=== PATIENT | male | born 1955 | race Caucasian/White ===

== ENCOUNTER 2016-12-04 12:37 | Emergency (ER) | payer BC ==
[2016-12-04] MEDS ORDERED: Ketorolac INJ* 30 MG/ML 1 ML VIAL IV ONE (13:26)
[2016-12-04 14:06] LABS: Hematocrit 43 % (42-52); Hemoglobin 14.6 g/dl (14.0-18.0); Mean Corpuscular HGB Conc 34 g/dl (31-36); Mean Corpuscular Hemoglobin 30 pg (27-31); Mean Corpuscular Volume 88 fL (80-94); Mean Platelet Volume 10 um3 (7.4-10.4); Red Cell Distribution Width 13 % (10.5-15); White Blood Count 5.4 10^3/ul (3.5-10.8)
--- NOTE | 2016-12-04 14:16 | RAD ---
HISTORY: Left shoulder pain COMPARISONS: None VIEWS: 5, Frontal internal rotation, external rotation, outlet, and axillary views of the left shoulder FINDINGS: BONE DENSITY: Normal. BONES: There is no displaced fracture. JOINTS: There is moderate osteoarthritis of the a.c. and glenoid humeral joints. ALIGNMENT: There is no dislocation. SOFT TISSUES: Unremarkable. OTHER FINDINGS: None. IMPRESSION: OSTEOARTHRITIS. NO ACUTE OSSEOUS INJURY. IF SYMPTOMS PERSIST, RECOMMEND REPEAT IMAGING.
--- NOTE | 2016-12-04 14:20 | RAD ---
Indication: Chest pain. 2 views of the chest including dual energy PA views demonstrates no mediastinal shift. Heart is of normal size and configuration. Lungs are clear. IMPRESSION: No active cardiopulmonary disease is noted.
[2016-12-04 15:12] LABS: Calcium 9.2 mg/dL (8.6-10.3); EGFR African American 162.3 (>60); EGFR Non-African American 126.2 (>60); Globulin 2.2 g/dL (2-4); Total Bilirubin 0.6 mg/dL (0.2-1.0); Total Protein 6.2 g/dL (6.4-8.9)
[2016-12-04] MEDS ORDERED: NS 0.9% 1000 ML* 1,000 ML IV ONE (15:12)
[2016-12-04 17:06] VITALS: BP 142/70
--- NOTE | 2016-12-05 20:42 | ED ---
ICarmine Nikita, scribed for Deuce Tobias MD on 12/04/16 at 1756 . Progress - Progress Note Progress Note: This patient was signed out from Dr. Cerrato, pending disposition, awaiting repeat Troponin and D-Dimer. Pt reports pain in the L upper shoulder is worse with movement. Plan to discharge the pt as long as Trop and D-dimer are negative. The patients condition is stable and will be discharged to home with Dx of Cervical radiculopathy. - Results/Orders Results/Orders: Repeat Troponin was 0.00. D-Dimer was <200. Re-Evaluation - Re-Evaluation First Eval Re-Evaluation Time: 17:20 Comment: Discussed why he presented today and the plan to discharge as long as lab results are negative. Course/Dx - Diagnoses Provider Diagnoses: Cervical radiculopathy The documentation as recorded by the Carmine weiner Nikita accurately reflects the service I personally performed and the decisions made by me, Deuce Tobias MD.
--- NOTE | 2016-12-07 15:40 | ED ---
Katlin Ly SooYoung, scribed for Quinten Cerrato MD on 12/04/16 at 1321 . Hypertension - HPI Summary HPI Summary: A 60 y/o M LOGAN presents to ED with L shoulder pain and swelling onset approx 1030. Pain radiates to his back and shoulder blade and neck. At its worst, rates pain as 9 out of 10. Pt and were on the way to the hospital, but as the pain worsened they stopped at a fire station. They took his BP there and it was very high. He was then transported to ED by ambulance. Took his daily meds this AM, except for his Metformin. On 10/03/2016 tore bicep tendon, 12/14/2016 surgery. - History of Current Complaint Chief Complaint: EDHypertension Stated Complaint: HIGH BLOOD PRESSURE Time Seen by Provider: 12/04/16 13:12 Hx Obtained From: Patient, Family/Brim Plater Onset/Duration: Started Hours Ago, Atraumatic, Still Present Timing: Constant Associated Signs & Symptoms: Swelling - L shoulder, Pain - L shoulder radiating to back/shoulder blade and neck - Allergies/Home Medications Allergies/Adverse Reactions: Allergies Allergy/AdvReac Type Severity Reaction Status Date / Time Liraglutide [From Victoza] Allergy Unknown Verified 12/04/16 13:04 Reaction Details Lisinopril [From Zestril] Allergy Unknown Verified 12/04/16 13:04 Reaction Details Nifedipine [From Procardia] Allergy Edema Verified 12/04/16 13:03 Phenol [From Victoza] Allergy Unknown Verified 12/04/16 13:04 Reaction Details Propylene Glycol Allergy Unknown Verified 12/04/16 13:04 [From Victoza] Reaction Details PMH/Surg Hx/FS Hx/Imm Hx Previously Healthy: No Endocrine/Hematology History: Reports: Hx Diabetes Cardiovascular History: Reports: Hx Hypertension Infectious Disease History: No Infectious Disease History: Denies: Traveled Outside the [place] in Last 30 Days - Family History Known Family History: Positive: Cardiac Disease, Hypertension, Diabetes - Social History Occupation: Disabled Lives: With Family Alcohol Use: Weekly Substance Use Type: Reports: None Smoking Status (MU): Never Smoked Tobacco Review of Systems Negative: Fever Positive: Edema - L shoulder, Other - pos: L shoulder pain All Other Systems Reviewed And Are Negative: Yes Physical Exam Triage Information Reviewed: Yes Vital Signs On Initial Exam: Initial Vitals Temp Pulse Resp BP Pulse Ox 98.2 F 74 16 165/93 97 12/04/16 12:44 12/04/16 12:44 12/04/16 12:44 12/04/16 12:44 12/04/16 12:44 Vital Signs Reviewed: Yes Appearance: Positive: Well-Appearing, No Pain Distress, Obese - morbidly Skin: Positive: Warm, Skin Color Reflects Adequate Perfusion, Dry Head/Face: Positive: Normal Head/Face Inspection Eyes: Positive: Normal ENT: Positive: Normal ENT inspection Neck: Positive: Supple, Nontender Respiratory/Lung Sounds: Positive: Clear to Auscultation, Breath Sounds Present Cardiovascular: Positive: RRR Abdomen Description: Positive: Nontender, Soft Bowel Sounds: Positive: Present Musculoskeletal: Positive: Other - Tenderness over superior portion of L trapeze and rhomboid area; a little bit of tenderness over posterior deltoid Neurological: Positive: Normal Psychiatric: Positive: Normal, Affect/Mood Appropriate - Sal Coma Scale Coma Scale Total: 14 Diagnostics - Vital Signs Vital Signs Temp Pulse Resp BP Pulse Ox 12/04/16 13:00 73 0 158/90 97 12/04/16 12:54 74 14 96 12/04/16 12:44 98.2 F 74 16 165/93 97 - Laboratory Lab Results: Lab Results 12/04/16 12/04/16 12/04/16 Range/Units 13:36 13:36 13:36 WBC 5.4 (3.5-10.8) 10^3/ul RBC 4.90 (4.0-5.4) 10^6/ul Hgb 14.6 (14.0-18.0) g/dl Hct 43 (42-52) % MCV 88 (80-94) fL MCH 30 (27-31) pg MCHC 34 (31-36) g/dl RDW 13 (10.5-15) % Plt Count 130 L (150-450) 10^3/ul MPV 10 (7.4-10.4) um3 Neut % (Auto) 72.2 (38-83) % Lymph % (Auto) 16.0 L (25-47) % [place] % (Auto) 9.2 H (1-9) % Eos % (Auto) 2.2 (0-6) % Baso % (Auto) 0.4 (0-2) % Absolute Neuts (auto) 3.9 (1.5-7.7) 10^3/ul Absolute Lymphs (auto) 0.9 L (1.0-4.8) 10^3/ul Absolute Monos (auto) 0.5 (0-0.8) 10^3/ul Absolute Eos (auto) 0.1 (0-0.6) 10^3/ul Absolute Basos (auto) 0 (0-0.2) 10^3/ul Absolute Nucleated RBC 0 10^3/ul Nucleated RBC % 0.1 D-Dimer, Quantitative (Less Than 230) ng/mL Sodium 137 (133-145) mmol/L Potassium 4.0 (3.5-5.0) mmol/L Chloride 101 (101-111) mmol/L Carbon Dioxide 28 (22-32) mmol/L Anion Gap 8 (2-11) mmol/L BUN 13 (6-24) mg/dL Creatinine 0.65 L (0.67-1.17) mg/dL Est GFR ( Amer) 162.3 (>60) Est GFR (Non-Af Amer) 126.2 (>60) BUN/Creatinine Ratio 20.0 (8-20) Glucose 185 H (70-100) mg/dL Lactic Acid 2.3 H* (0.5-2.0) mmol/L Calcium 9.2 (8.6-10.3) mg/dL Total Bilirubin 0.60 (0.2-1.0) mg/dL AST 15 (13-39) U/L ALT 16 (7-52) U/L Alkaline Phosphatase 40 (34-104) U/L Troponin I 0.00 (<0.04) ng/mL Total Protein 6.2 L (6.4-8.9) g/dL Albumin 4.0 (3.2-5.2) g/dL Globulin 2.2 (2-4) g/dL Albumin/Globulin Ratio 1.8 (1-3) 12/04/16 12/04/16 Range/Units 13:36 16:45 WBC (3.5-10.8) 10^3/ul RBC (4.0-5.4) 10^6/ul Hgb (14.0-18.0) g/dl Hct (42-52) % MCV (80-94) fL MCH (27-31) pg MCHC (31-36) g/dl RDW (10.5-15) % Plt Count (150-450) 10^3/ul MPV (7.4-10.4) um3 Neut % (Auto) (38-83) % Lymph % (Auto) (25-47) % [place] % (Auto) (1-9) % Eos % (Auto) (0-6) % Baso % (Auto) (0-2) % Absolute Neuts (auto) (1.5-7.7) 10^3/ul Absolute Lymphs (auto) (1.0-4.8) 10^3/ul Absolute Monos (auto) (0-0.8) 10^3/ul Absolute Eos (auto) (0-0.6) 10^3/ul Absolute Basos (auto) (0-0.2) 10^3/ul Absolute Nucleated RBC 10^3/ul Nucleated RBC % D-Dimer, Quantitative < 200 (Less Than 230) ng/mL Sodium (133-145) mmol/L Potassium (3.5-5.0) mmol/L Chloride (101-111) mmol/L Carbon Dioxide (22-32) mmol/L Anion Gap (2-11) mmol/L BUN (6-24) mg/dL Creatinine (0.67-1.17) mg/dL Est GFR ( Amer) (>60) Est GFR (Non-Af Amer) (>60) BUN/Creatinine Ratio (8-20) Glucose (70-100) mg/dL Lactic Acid (0.5-2.0) mmol/L Calcium (8.6-10.3) mg/dL Total Bilirubin (0.2-1.0) mg/dL AST (13-39) U/L ALT (7-52) U/L Alkaline Phosphatase (34-104) U/L Troponin I 0.00 (<0.04) ng/mL Total Protein (6.4-8.9) g/dL Albumin (3.2-5.2) g/dL Globulin (2-4) g/dL Albumin/Globulin Ratio (1-3) Result Diagrams: 12/04/16 13:36 08/29/17 13:36 Lab Statement: Any lab studies that have been ordered have been reviewed, and results considered in the medical decision making process. - Radiology Shoulder XR Xray Interpretation: No Acute Changes - IMPRESSION: OSTEOARTHRITIS. NO ACUTE OSSEOUS INJURY. IF SYMPTOMS PERSIST, RECOMMEND REPEAT IMAGING. ED physician has reviewed this radiology report and agrees. Radiology Interpretation Completed By: Radiologist CXR Xray Interpretation: No Acute Changes - IMPRESSION: No active cardiopulmonary dz. ED physician has reviewed this radiology report and agrees. Radiology Interpretation Completed By: Radiologist - EKG 1250 Cardiac Rate: NL - 72bpm EKG Rhythm: Sinus Rhythm EKG Interpretation: LBBB Re-Evaluation - Re-Evaluation First Eval Re-Evaluation Time: 17:20 Comment: Discussed why he presented today and the plan to discharge as long as lab results are negative. Hypertension Course/Dx - Course Course Of Treatment: Mr. Deluna clearly has a musculoskeletal component to his pain. It is likely that his HTN was a result rather than a cause of the pain. His initial W/U is negative and he is awaiting a second Trop. Assuming that is negative he will likely go home. I'm not sure why his pain intensified so abruptly. - Diagnoses Provider Diagnoses: Cervical radiculopathy Discharge - Discharge Plan Condition: Stable Disposition: HOME Discharge Disposition Comment: SO at shift change pending lab results. If negative, D/C home. Patient Education Materials: Cervical Radiculopathy (ED) Referrals: Milana SO,Angus Smith [Primary Care Provider] - Additional Instructions: Take Ibuprofen for pain. Follow up with your primary care provider in 2-3 days. Please return to the ED if you experience new or worsening symptoms. The documentation as recorded by the Katlin weiner SooYoung accurately reflects the service I personally performed and the decisions made by me, Quinten Cerrato MD.
== END 2016-12-04 17:36 | disposition home or self-care (01) ==
LOC: ED 12:37
DX: M54.12 Radiculopathy, cervical region (principal); M25.412 Effusion, left shoulder
CPT/HCPCS: 36415; 71020; 80053; 83605; 84484; 85025; 85379; 93005; 96374; 99283; J1885